=== PATIENT | female | born 1980 | race Caucasian/White ===

== ENCOUNTER 2019-04-23 14:14 | Emergency (ER) | payer SELFPAY ==
[2019-04-23 14:20] VITALS: BP 154/92; PULSE 93; RESP 16; TEMP 37.1; O2SAT 99
--- NOTE | 2019-04-23 14:29 | ED.GENADULT ---
HPI - General Adult General Chief complaint: Upper Respiratory Infection Stated complaint: weak/congestion Time Seen by Provider: 04/23/19 14:28 Source: patient Mode of arrival: ambulatory Limitations: no limitations History of Present Illness HPI narrative: Patient is here to possibly be swab for the flu, she is here with her daughter who is being seen for another illness and states that she has had some upper respiratory symptoms in the last couple days, no fever, no chills, no body aches. She is afebrile here Associated symptoms: denies other symptoms Treatments prior to arrival: none Related Data Home Medications Medication Instructions Recorded Confirmed No Home Medications 04/23/19 04/23/19 Allergies Allergy/AdvReac Type Severity Reaction Status Date / Time No Known Allergies Allergy Verified 04/23/19 15:00 Review of Systems Review of Systems: All systems reviewed & are unremarkable except as noted in HPI and below PMFSH Past Medical History Medical History Rib fracture Surgical History Surgical History No history of previous surgery Social History Social History Smoking packs per day: 1 Smoking cigarettes per day: 20.0 Smoking status: Current every day smoker Gender identity (if verbalized by the patient): Female Exam Const: General: healthy appearing, no acute distress and alert Orientation/consciousness: patient oriented x3 HENMT: Head: normal to inspection Ears: TM's normal bilaterally General nose exam: Normal nares present Mouth: Yes moist mucous membranes Eyes: Conjunctivae: conjunctivae normal Pupils: Equal, round and reactive pupils present Resp: Effort & Inspection: normal respiratory effort Auscultation: clear to auscultation bilaterally Cardio: Rate: regular rate Rhythm: regular rhythm Skin: General skin exam: normal color Rashes: no rashes Extrem: General: normal to inspection Psych: Mental Status: mental status grossly normal Course Course Emergency Course: Pt appears well. Recommended OTC cold medication should she develop cough, and the use of saline spray for nasal congestion. She agrees. Vital Signs Vital signs: Vital Signs Temperature 37.1 C 04/23/19 14:20 Pulse Rate 93 04/23/19 14:20 Respiratory Rate 16 04/23/19 14:20 Blood Pressure 154/92 H 04/23/19 14:20 Pulse Oximetry 99 04/23/19 14:20 Temperature 37.1 C 04/23/19 14:20 Pulse Rate 93 04/23/19 14:20 Respiratory Rate 16 04/23/19 14:20 Blood Pressure 154/92 H 04/23/19 14:20 Pulse Oximetry 99 04/23/19 14:20 Medical Decision Making Vital Signs Vital Signs: Vital Signs Temperature 37.1 C 04/23/19 14:20 Pulse Rate 93 04/23/19 14:20 Respiratory Rate 16 04/23/19 14:20 Blood Pressure 154/92 H 04/23/19 14:20 Pulse Oximetry 99 04/23/19 14:20 Temperature 37.1 C 04/23/19 14:20 Pulse Rate 93 04/23/19 14:20 Respiratory Rate 16 04/23/19 14:20 Blood Pressure 154/92 H 04/23/19 14:20 Pulse Oximetry 99 04/23/19 14:20 Discharge Plan Discharge Clinical Impression: Mild nasal congestion Patient Disposition: Home, Self-Care Condition: Stable Instructions: Antibiotic Form, Cold Symptoms (ED) Additional Instructions: Use saline nasal spray to keep your mucous membranes moist during this dry time, may use [id number] cold medicines. If you develop fever and body aches may go to urgent care for flu testing. Prescriptions: No Action No Home Medications RF: 0 Follow-up/Referrals: UNKNOWN,DOCTOR [Primary Care Provider] - Time of Disposition: 15:14
== END 2019-04-23 16:00 | disposition home or self-care (01) ==
PROVIDERS: Emergency Provider Emergency Medicine
DX: R09.81 Nasal congestion (principal); F17.210 Nicotine dependence, cigarettes, uncomplicated
CPT/HCPCS: 99281